=== PATIENT | female | born 1975 | race Caucasian/White ===

== ENCOUNTER 2017-04-25 13:55 | Emergency (ER) | payer BC ==
[~2017-04-25] VITALS: Ht 170.2 cm; Wt 90.7 kg
[2017-04-25 14:02] VITALS: BP 131/94
== END 2017-04-25 17:52 | disposition left against medical advice (07) ==
LOC: ER 13:56
DX: R00.2 Palpitations (principal); Z53.21 Procedure and treatment not carried out due to patient leaving prior to being seen by health care provider
CPT/HCPCS: 93005